=== PATIENT | male | born 1930 | race Caucasian/White ===

== ENCOUNTER 2019-06-14 06:08 | Day surgery (SDC) | payer OTHER ==
[2019-06-14 07:12] VITALS: BMI 25.8
[2019-06-14] MEDS ORDERED: PROPOFOL 20 ML ONE (07:45)
[2019-06-14] MEDS ORDERED: MIDAZOLAM HCL 2 MG/2 ML SINGLE DOSE VIAL ONE (07:46)
[2019-06-14] MEDS ORDERED: DEXMEDETOMIDINE HCL 200 MCG/2 ML IVPB ONE (08:04)
[2019-06-14] MEDS ORDERED: ceFAZolin SODIUM 1 GM VIAL IVPB ONE ×2 (08:32)
[2019-06-14] MEDS ORDERED: BUPIVACAINE HCL/PF 0.5% (5 MG/ML) 30 ML VIAL IJ ONE (08:35)
[2019-06-14] MEDS ORDERED: BACITRACIN 15 GM TUBE TOPICAL OINTMENT ONE (08:38)
[2019-06-14] MEDS ORDERED: BUPIVACAINE HCL/PF 0.25% (2.5MG/ML) 10 ML VIAL ONE (08:38)
[2019-06-14] MEDS ORDERED: BACITRACIN/POLYMYXIN B SULFATE 15 GM TUBE TP ONE (08:56)
--- NOTE | 2019-06-14 09:45 | OP ---
Operative Note - Note: Operative Date: 06/14/19 Pre-Operative Diagnosis: phimosis Operation: circumsition Post-Operative Diagnosis: Same as Pre-op Anesthesia: General, Local Specimens Removed: penile forskin Estimated Blood Loss (mls): 0 Drains, Volume Out (mls): 0 Blood Volume Replaced (mls): 0 Fluid Volume Replaced (mls): 0
[2019-06-14] MEDS ORDERED: oxyCODONE HCL 5 MG TABLET PO PRN (09:55)
[2019-06-14] MEDS ORDERED: ONDANSETRON 4 MG/2 ML VIAL IVPUSH PRN (09:55)
[2019-06-14] MEDS ORDERED: LACTATED RINGERS SOLUTION 1,000 ML IV SCH (10:00)
--- NOTE | 2019-06-14 10:31 | OP ---
DATE OF OPERATION: 06/14/2019 PREOPERATIVE DIAGNOSIS: Phimosis, balanitis. POSTOPERATIVE DIAGNOSIS: Phimosis, balanitis. OPERATIVE PROCEDURE: Circumcision. ANESTHESIA: General. DESCRIPTION OF PROCEDURE: Under above-stated anesthesia, patient is prepped and draped in the usual sterile manner. He is placed in the supine position. The base of the penis was infiltrated with 0.25% Marcaine for long-term analgesia. Redundant foreskin was cleansed off the glans penis. There were some adhesions, so using both blunt and sharp dissection, the prepuce was cleaned off the glans penis. The frenulum also appeared to be scarred and shortened; therefore, a proximal and distal clamp were placed on the frenulum, and the frenulum was incised in the midportion. Both ends were tied with 3-0 Vicryl suture ligatures. Redundant foreskin was then taunted upwards, and a Maru clamp was placed circumferentially around the redundant foreskin at a 30-degree dorsal angle. The area below the Maru clamp was excised with a 10 blade. Hemostasis was secured with electrocoagulation and 5-0 Vicryl ties. Skin from the glans was then approximated to skin from the shaft using 4-0 chromic suture ligatures. Bleeding was controlled with cautery. No active bleeding was noted. Pressure dressing with Coban was then applied. The patient tolerated the procedure well. He returned to the recovery room in good condition. Carlton [id number]
[2019-06-14 10:37] VITALS: TEMP 97.6
--- NOTE | 2019-06-14 11:02 | HP ---
DATE OF ADMISSION: 06/14/2019 HISTORY OF PRESENT ILLNESS: Patient is an 88-year-old male with history of prostatism, including frequency, urgency, nocturia and terminal dribbling. He also has history of erectile dysfunction and hypogonadism. He does have history of diabetes and hypertension. ALLERGIES: He denies any allergies. 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 He is unable to retract the foreskin. PHYSICAL EXAMINATION: General: Physical exam revealed a well-developed adult male. Abdomen: His abdomen is soft. Genitourinary: Genitalia were atraumatic. The phallus was stenotic. The glans revealed some balanitis. 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 Testes were normal in size and consistency. Prostate is 2+, smooth, benign, nontender. Extremities: Showed full range of motion with no cyanosis, clubbing, or edema. IMPRESSION: At present phimosis, balanitis. PLAN: To undergo a circumcision. This was explained to the patient and he agrees. Carlton [id number]
[2019-06-14 16:34] VITALS: BP 121/53; PULSE 55
--- NOTE | 2019-06-15 15:08 | PATH ---
Surgical Pathology Report Patient Name: GUSTAVO CLARKE [facility]. Rec. #: [id number] /Age/Gender: 1930 (Age: 89) / M Account: [id number] Location: [facility] Taken: 06/14/2019 Received: 06/14/2019 Reported: 06/15/2019 Physicians: Jasen Cuellar M.D. Specimen(s) Received A: FORESKIN B: PENILE SCAR TISSUE C: FOREIGN BODY Clinical History Phimosis and balanitis Final Diagnosis A. FORESKIN, EXCISION: PORTION OF FORESKIN WITH FOCAL CHRONIC INFLAMMATION. B. PENILE SCAR TISSUE, EXCISION: PORTIONS OF FORESKIN WITH FOCAL CHRONIC INFLAMMATION AND FIBROSIS IN THE SUBMUCOSA. C. SUPRAPUBIC TUBE, REMOVAL: CONSISTENT WITH PORTIONS OF TUBES. GROSS EXAMINATION ONLY. Electronically Signed Robin Moralez M.D. Gross Description A. Received in formalin labeled "foreskin," is a 7.0 x 3.0 x 0.4 cm brown, wrinkled, unoriented portion of skin, consistent with a portion of foreskin. No discrete lesions are identified. [employer] sections are submitted in one cassette. B. Received in formalin labeled "penile scar tissue," are 3 brown, irregular, unoriented portions of skin ranging from 0.4 x 0.2 x 0.1 cm to 1.8 x 0.3 x 0.1 cm. The specimens are submitted in toto in one cassette. C. Received fresh labeled "suprapubic tube," are 2 brannon-yellow portions of tubing measuring 14.0 and 27.0 cm in length. No soft tissue is present. No sections are submitted, gross only. /06/14/2019 saudi06/14/2019
== END 2019-06-14 12:34 | disposition home or self-care (01) ==
LOC: JASU-SURG 06:08
PROVIDERS: ATTEND Urology
PROC: 0VTTXZZ Resection of Prepuce, External Approach (ICD-10-PCS; principal; 2019-06-14 10:00)
DX: N47.1 Phimosis (principal); N48.1 Balanitis; E11.9 Type 2 diabetes mellitus without complications; K21.9 Gastro-esophageal reflux disease without esophagitis
CPT/HCPCS: 82962; 88300-TC; 88304-TC; 94760